=== PATIENT | male | born 2000 | race African-American/Black ===

== ENCOUNTER 2025-08-25 05:45 | Emergency (ER) | payer OTHER ==
[2025-08-25 06:35] LABS: Absolute Lymphocytes (CBC) 1.0 K/uL (0.7-4.9); Hematocrit 46.5 % (39.6-49.0); Hemoglobin 16.1 g/dL (13.6-17.9); MCH 31.2 pg (27.0-35.0); MCHC 34.7 g/dL (32.0-36.0); MCV 89.9 fL (80-100); MPV 9.4 fL (7.6-11.3); Nucleated RBC Absolute Count 0.1 (0-0); Nucleated Red Blood Cells % 1.5 % (0-0); RBC Red Blood Cell Count 5.17 M/uL (4.33-5.43); White Blood Count 7.90 thou/uL (4.3-10.9)
[2025-08-25 06:54] LABS: ALT/SGPT 21.0 U/L (16-61); AST/SGOT 19.0 U/L (15-37); Albumin 4.1 g/dL (3.4-5.0); Albumin/Globulin Ratio 1.1 (1.1-1.8); Alkaline Phosphatase 89.0 U/L (45-117); Anion Gap 8.0 mEq/L (5.0-15.0); BUN Blood Urea Nitrogen 9.0 mg/dL (7-18); Bilirubin Indirect, Calculated 0.4 mg/dL (0.2-0.8); Globulin 3.7 g/dL (2.3-3.5); Glucose Level 88.0 mg/dL (74-106); Lipase 20.0 U/L (13-75); Potassium 3.0 mEq/L (3.5-5.1); Troponin High Sensitivity 5.6 pg/mL (<58.9)
--- NOTE | 2025-08-25 07:00 | EDPHYS ---
Physician Documentation [facility] Name: Alex Holden Age: 25 yrs Sex: Male : 2000 Arrival Date: 08/25/2025 Time: 05:45 Bed 8 Private MD: ED Physician Elmo Rincon HPI: 08/25 05:58 This 25 yrs old Male presents to ER via EMS with complaints of Nausea/Vomiting. tt7 05:58 Patient reports that he had a coughing fit earlier today where he coughed up some tt7 blood, apparently had told EMS that after eating a hot pocket at midnight he had a vomiting episode that seemed bloody, unclear if it was truly coughing blood or vomiting blood, he also states that he had some intermittent sharp chest pain at midnight. Currently his symptoms have totally resolved and he feels good. He has no significant past medical history. He reports working at a [employer] Historical: - Allergies: 05:50 No Known Allergies; mf3 - Home Meds: 05:50 None [Active]; mf3 - PMHx: 05:50 None; mf3 - PSHx: 05:50 None; mf3 - Immunization history:: Adult Immunizations up to date. - Infectious Disease History:: Denies. - Social history:: Smoking status: Patient reports the use of cigarette tobacco products, smokes one pack cigarettes per day. ROS: 05:59 Constitutional: negative for fever. tt7 05:59 Back: Negative for injury and pain, MS/Extremity: negative for injury and deformity. Skin: negative for rash. Neuro: negative for focal weakness. 05:59 Cardiovascular: Positive for chest pain, Negative for palpitations, 05:59 Respiratory: Positive for cough, hemoptysis, Negative for shortness of breath, wheezing, 05:59 Abdomen/GI: Positive for nausea and vomiting, Negative for abdominal pain, Exam: 06:00 Constitutional: vital signs reviewed, well appearing. Head/Face: normocephalic, tt7 atraumatic. Eyes: no conjunctival injection, anicteric sclerae. ENT: mucus membranes moist. Neck: trachea midline, no JVD, no meningismus. Chest/axilla: normal chest wall appearance and motion, nontender, no crepitus. Cardiovascular: regular rate and rhythm, no murmurs, no rubs, no lower extremity edema. Respiratory: normal respiratory effort, no accessory muscle use, lungs CTAB. Abdomen/GI: soft, nondistended, nontender, no guarding or rebound, negative Tafoya's sign, no McBurney point tenderness. Back: normal ROM. Skin: warm, dry, intact, normal turgor, normal color, no rash. MS/ Extremity: normal ROM of extremities, no gross deformities. Neuro: alert and oriented with appropriate mental status, normal speech, follows commands, no focal neurologic deficits. Psych: appropriate mood and affect. Vital Signs: 05:48 BP 135 / 85; Pulse 73; Resp 17; Temp 98.1; Pulse Ox 100% on R/A; Weight 79.38 kg; mf3 Height 6 ft. 0 in. ; Pain 0/10; 07:17 BP 130 / 80; Pulse 71; Resp 15; Pulse Ox 100% ; jl7 05:48 Body Mass Index 23.73 (79.38 kg, 182.88 cm) mf3 05:48 Pain Scale: Adult mf3 [place] Coma Score: 05:52 Eye Response: spontaneous(4). Motor Response: obeys commands(6). Verbal Response: mf3 oriented(5). Total: 15. MDM: 05:51 Medical Screening Exam initiated tt7 06:00 Differential diagnosis: Nonspecific abd pain, gastritis, pancreatitis, viral tt7 gastroenteritis, gastroenteritis, ACS, pulmonary embolism, pneumothorax, pneumonia. Data reviewed: vital signs, nurses notes, lab test result(s), EKG, radiologic studies. 06:43 ED course: I independently interpreted the patient's EKG performed on 08/25/2025 at tt7 639. On my interpretation, EKG demonstrates normal sinus rhythm, ventricular rate 64 bpm, normal axis, normal QRS interval, normal ST segments, no STEMI. 06:56 ED course: Laboratory studies are reassuring, I independently interpreted the patient's tt7 chest x-ray. On my interpretation, chest x-ray demonstrates no radiographic evidence of acute cardiopulmonary disease. 07:11 ED course: After completion of the patient's emergency department evaluation, I do not tt7 suspect a life-threatening or disabling process. Patient is medically stable and not in need of emergent medical intervention. I had a detailed discussion with the patient regarding the historical points, exam findings, emergency department evaluation, diagnostic results, and the discharge diagnosis. I instructed the patient on outpatient management of their condition. I discussed the need for outpatient follow-up with a primary care physician. I informed the patient on return precautions, including the need to return to the ED if symptoms do not improve, worsen, or if there are any questions or concerns that arise at home. The patient was discharged in stable condition. 08/25 05:55 Order name: Basic Metabolic Panel; Complete Time: 06:56 tt7 08/25 05:55 Order name: CBC with Diff tt7 08/25 05:55 Order name: LFT's; Complete Time: 06:56 tt7 08/25 05:55 Order name: Troponin HS; Complete Time: 06:56 tt7 08/25 05:55 Order name: Lipase; Complete Time: 06:56 tt7 08/25 06:40 Order name: CBC Smear Scan EDMS 08/25 05:55 Order name: XRAY Chest (1 view) tt7 08/25 05:55 Order name: Cardiac monitoring; Complete Time: 06:30 tt7 08/25 05:55 Order name: EKG - Nurse/Tech; Complete Time: 06:41 tt7 08/25 05:55 Order name: IV Saline Lock; Complete Time: 06:30 tt7 08/25 05:55 Order name: Labs collected and sent; Complete Time: 06:30 tt7 08/25 05:55 Order name: O2 Per Protocol; Complete Time: 06:30 tt7 08/25 05:55 Order name: O2 Sat Monitoring; Complete Time: 06:30 tt7 Administered Medications: No medications were administered Disposition: 07:11 Co-signature as Attending Physician, Elmo Rincon DO. tt7 Disposition Summary: 08/25/25 06:59 Discharge Ordered Notes: Location: Home tt7 Problem: new tt7 Symptoms: are resolved tt7 Condition: Stable tt7 Diagnosis - Chest pain, unspecified tt7 Followup: tt7 - With: Emergency Department - When: As needed - Reason: Followup: tt7 - With: Private Physician - When: 1 - 2 days - Reason: Recheck today's complaints, Re-evaluation by your physician Discharge Instructions: - Discharge Summary Sheet tt7 - Nonspecific Chest Pain, Adult, [id number] tt7 Forms: - Medication Reconciliation Form tt7 - Antibiotic Education tt7 - Prescription Opioid Use tt7 - Patient Portal Instructions tt7 - Leadership Thank You Letter tt7 Signatures: Dispatcher [employer] EDMS Juliet Mena RN RN mf3 Elmo Rincon, DO tt7 Corrections: (The following items were deleted from the chart) 05:56 05:56 BASIC METABOLIC PANEL+C.LAB.BRZ ordered. EDMS EDMS 05:56 05:56 CBC+H.LAB.BRZ ordered. EDMS EDMS 05:56 05:56 HEPATIC FUNCTION+C.LAB.BRZ ordered. EDMS EDMS 05:56 05:56 Troponin High Sensitivity+C.LAB.BRZ ordered. EDMS EDMS 05:56 05:56 LIPASE+C.LAB.BRZ ordered. EDMS EDMS 05:56 05:56 Chest Single View+RAD.RAD.BRZ ordered. EDMS EDMS
--- NOTE | 2025-08-25 07:00 | ER ---
Nurse's Notes [facility] Name: Alex Holden Age: 25 yrs Sex: Male : 2000 Arrival Date: 08/25/2025 Time: 05:45 Bed 8 Private MD: Diagnosis: Chest pain, unspecified Presentation: 08/25 05:48 Chief complaint: Patient states: Pt to ED via/ EMS c/o vomiting after eating a mf3 hotpcoket around 0000 today. pt a/o on arrival and no vomiting at the moment. Coronavirus screen: Client denies travel out of the [place] in the last 14 days. At this time, the client does not indicate any symptoms associated with coronavirus-19. Ebola Screen: No symptoms or risks identified at this time. Initial Sepsis Screen: Does the patient meet any 2 criteria? No. Patient's initial sepsis screen is negative. Does the patient have a suspected source of infection? No. Patient's initial sepsis screen is negative. Risk Assessment: Do you want to hurt yourself or someone else? Patient reports no desire to harm self or others. Onset of symptoms was August 25, 2025. 05:48 Method Of Arrival: EMS: [facility] 05:48 Acuity: TRISHA 3 mf3 Triage Assessment: 05:50 General: Appears in no apparent distress. comfortable, Behavior is calm, cooperative, mf3 appropriate for age. Pain: Denies pain. Neuro: Level of Consciousness is awake, alert, obeys commands, Oriented to person, place, time. Cardiovascular: Capillary refill < 3 seconds. Respiratory: Airway is patent Trachea midline Respiratory effort is even. GI: Abdomen is flat, Bowel sounds present X 4 quads. Reports vomiting, since once after eating hot pocket a 0000. : No signs and/or symptoms were reported regarding the genitourinary system. Derm: Skin is intact, is healthy with good turgor. Musculoskeletal: No signs and/or symptoms reported regarding the musculoskeletal system. Historical: - Allergies: 05:50 No Known Allergies; mf3 - Home Meds: 05:50 None [Active]; mf3 - PMHx: 05:50 None; mf3 - PSHx: 05:50 None; mf3 - Immunization history:: Adult Immunizations up to date. - Infectious Disease History:: Denies. - Social history:: Smoking status: Patient reports the use of cigarette tobacco products, smokes one pack cigarettes per day. Screenin:52 [facility] ED Fall Risk Assessment (Adult) History of falling in the last 3 months, mf3 including since admission No falls in past 3 months (0 pts) Confusion or Disorientation No (0 pts) Intoxicated or Sedated No (0 pts) Impaired Gait No (0 pts) Mobility Assist Device Used No (0 pt) Altered Elimination No (0 pt) Score/Fall Risk Level 0 - 2 = Low Risk. Abuse screen: Denies threats or abuse. Denies injuries from another. Nutritional screening: No deficits noted. Tuberculosis screening: No symptoms or risk factors identified. Never had TB. Assessment: 05:52 General: Appears in no apparent distress. comfortable, Behavior is calm, cooperative, mf3 appropriate for age. Pain: Denies pain. Neuro: Level of Consciousness is awake, alert, obeys commands, Oriented to person, place, time. Cardiovascular: Capillary refill < 3 seconds. Respiratory: Airway is patent Trachea midline Respiratory effort is even. GI: Abdomen is flat, Bowel sounds present X 4 quads. Abd is soft Reports vomiting. : No signs and/or symptoms were reported regarding the genitourinary system. EENT: No signs and/or symptoms were reported regarding the EENT system. Derm: Skin is intact, is healthy with good turgor, Skin is normal. Musculoskeletal: No signs and/or symptoms reported regarding the musculoskeletal system. 06:39 Reassessment: Patient and/or family updated on plan of care and expected duration. Pain cc6 level reassessed. Patient is alert, oriented x 3, equal unlabored respirations, skin warm/dry/pink. 07:12 Reassessment: Dr. Rincon at bedside discussing results and POC for discharge. jl7 Vital Signs: 05:48 BP 135 / 85; Pulse 73; Resp 17; Temp 98.1; Pulse Ox 100% on R/A; Weight 79.38 kg; 3 Height 6 ft. 0 in. ; Pain 0/10; 07:17 BP 130 / 80; Pulse 71; Resp 15; Pulse Ox 100% ; jl7 05:48 Body Mass Index 23.73 (79.38 kg, 182.88 cm) 3 05:48 Pain Scale: Adult 3 [place] Coma Score: 05:52 Eye Response: spontaneous(4). Motor Response: obeys commands(6). Verbal Response: mf3 oriented(5). Total: 15. ED Course: 05:47 Patient arrived in ED. br2 05:48 Juliet Mena, RN is Primary Nurse. mf3 05:50 Triage completed. mf3 05:50 Arm band placed on right wrist. Patient placed in an exam room, on a stretcher, on mf3 pulse oximetry. 05:51 Elmo Rincon DO is Attending Physician. tt7 05:52 Patient has correct armband on for positive identification. Bed in low position. Call mf3 light in reach. Side rails up X2. Provided Education on: pt educated on poc. 05:52 No provider procedures requiring assistance completed. Inserted saline lock: 20 gauge mf3 in left antecubital area, using aseptic technique. 06:26 Inserted saline lock: 22 gauge in right wrist, using aseptic technique. Blood vk collected. Flushed with 10 mL NS. 06:35 XRAY Chest (1 view) In Process Unspecified. EDMS 06:44 Basic Metabolic Panel Sent. mf3 06:45 CBC with Diff Sent. mf3 06:45 LFT's Sent. mf3 06:45 Troponin HS Sent. mf3 07:12 IV discontinued, intact, bleeding controlled, No redness/swelling at site. Pressure jl7 dressing applied. Administered Medications: No medications were administered Medication: 05:52 VIS not applicable for this client. mf3 Outcome: 06:59 Discharge ordered by MD. tt7 07:12 Discharged to home ambulatory, with friend, jl7 07:12 Condition: stable 07:12 Discharge instructions given to patient, friend, Instructed on discharge instructions, follow up and referral plans. Demonstrated understanding of instructions, follow-up care, 07:19 Patient left the ED. jl7 Signatures: Dispatcher [employer] EDMS Ana Mathur RN RN [id number] Alissa Hernadez Belinda, RN RN br2 Juana Lovell RN RN cc6 Juliet Mena RN RN mf3 Elmo Rincon DO DO tt7
--- NOTE | 2025-08-25 07:34 | RAD REPORT ---
EXAM: Chest Single View HISTORY: 25 years Male CHEST PAIN COMPARISON: No prior exams FINDINGS: LUNGS/PLEURA: The lungs are clear. No pleural effusions or pneumothorax. No pulmonary edema. CARDIAC/MEDIASTINUM: The cardiac silhouette is within normal limits. UPPER ABDOMEN: No significant abnormality. BONES: No acute abnormality. LINES/TUBES/OTHER: N/A IMPRESSION: No evidence of acute cardiopulmonary disease.
[2025-08-25 08:08] VITALS: TEMP 98.1; O2SAT 100
[2025-08-25 08:09] VITALS: BP 130/80
[2025-08-25 09:34] LABS: White Blood Cell Scan OK (OK)
[2025-08-25 09:35] LABS: Blood Morphology Comment NOT SEEN (NOT SEEN)
== END 2025-08-25 07:19 | disposition home or self-care (01) ==
LOC: ER 05:45
DX: R07.9 Chest pain, unspecified (principal); R11.2 Nausea with vomiting, unspecified; R05.9 Cough, unspecified; F17.210 Nicotine dependence, cigarettes, uncomplicated
CPT/HCPCS: 36415; 71045; 80048; 80076; 83690; 84484; 85025; 93005; 99284